=== PATIENT | female | born 1945 | race Caucasian/White ===

== ENCOUNTER → 2017-01-27 | Outpatient (CLI) | payer MEDICARE, OTHER ==
--- NOTE | 2017-01-27 23:50 | EEG ---
DATE OF SERVICE: 01/27/2017 INDICATIONS FOR EXAMINATION: This patient is a 71 -year-old female being evaluated for dizziness. The patient has history of previous stroke, diabetes mellitus. AGE: 71Y EEG FINDINGS: A routine 21 channel awake digital EEG recording was accomplished utilizing the 10-20 international system with bipolar and referential montages. The background activity in the most alert resting state consists of a low to medium amplitude, poorly developed and poorly sustained 5 Hz activity over the posterior head regions. This posterior rhythm attenuates to eye opening. There is a small amount of low amplitude 18-20 Hz beta activity seen maximally over the anterior head regions. Muscle and movement artifact was observed on a few occasions during the tracing. Hyperventilation was not performed. Photic stimulation at flash frequencies of 2-30 Hz produced a minimal occipital driving response. No epileptiform discharges were seen. IMPRESSION: This EEG gives evidence of severe widespread diffuse disturbance in cerebral function. The EEG failed to reveal any focal, lateralized or epileptiform abnormalities. If clinically indicated, a follow-up EEG is recommended. Clinical correlation is recommended.
== END | disposition home or self-care (01) ==
LOC: NEUROMAIN 09:03
PROVIDERS: ATTEND Family Medicine
DX: R42 Dizziness and giddiness (principal)
CPT/HCPCS: 95819